=== PATIENT | female | born 1950 | race Caucasian/White ===

== ENCOUNTER 2022-10-29 11:35 | Inpatient (IN) | payer OTHER ==
[~2022-10-29] VITALS: Ht 160 cm; Wt 50.3 kg
[2022-10-29] MEDS ORDERED: IV NS 0.9% 1,000 ML IV ONE (12:00)
[2022-10-29 12:19] LABS: MAGNESIUM 1.7 mg/dL (1.8-2.4)
[2022-10-29 12:24] LABS: BASOPHILS % (AUTO) 0.4 % (0.0-2.0); EOSINOPHILS % (AUTO) 2.2 % (0.0-6.0); HEMATOCRIT 23 % (33-45); HEMOGLOBIN 7.4 g/dL (11.5-14.8); LYMPHOCYTES # (AUTO) 0.9 K/uL (0.8-4.8); LYMPHOCYTES % (AUTO) 15.5 % (20.0-44.0); MEAN CORPUSCULAR HGB CONC 32 g/dl (31.0-36.0); MEAN CORPUSCULAR VOLUME 92 fL (82-100); MONOCYTES # (AUTO) 0.5 K/uL (0.1-1.30); MONOCYTES % (AUTO) 9.9 % (2.0-12.0); RED BLOOD CELL COUNT(AUTO) 2.53 MIL/uL (4.0-5.2); WHITE BLOOD COUNT (AUTO) 5.5 K/uL (4.3-11.0)
[2022-10-29 12:31] LABS: PLATELET COUNT (AUTO) 38 K/uL (150-450)
[2022-10-29 12:41] LABS: ALANINE AMINOTRANSFERASE 30 U/L (12-78); ALBUMIN 1.5 g/dL (3.4-5.0); ALKALINE PHOSPHATASE 116 U/L (46-116); ASPARTATE AMINOTRANSFERASE 20 U/L (15-37); BILIRUBIN,DIRECT 0.4 mg/dL (0.0-0.2); BILIRUBIN,TOTAL 0.7 mg/dL (0.2-1.0); CARBON DIOXIDE 22 mmol/L (21-32); CHLORIDE 115 mmol/L (98-107); CREATININE 7.4 mg/dL (0.6-1.3); GLUCOSE 98 mg/dL (74-106); POTASSIUM 4.2 mmol/L (3.5-5.1); SODIUM SERUM 148 mmol/L (136-145); TOTAL PROTEIN, SERUM 4.7 g/dL (6.4-8.2); UREA NITROGEN, BLOOD 48 mg/dL (7-18)
[2022-10-29 13:31] LABS: BASOPHILS % (MANUAL) 0 % (0.0-2.0); EOSINOPHILS % (MANUAL) 3 % (0-4); LYMPHOCYTES % (MANUAL) 16 % (16-48); MONOCYTES % (MANUAL) 7 % (0-11.0); NEUTROPHILS % (MANUAL) 74 (42-76)
[2022-10-29] MEDS ORDERED: ONDANSETRON HCL/PF 4 MG/2 ML VIAL IVP PRN (14:00)
[2022-10-29] MEDS ORDERED: PHYTONADIONE INJ 10 MG in IV D5W 50 ML SQ SCH (14:00)
[2022-10-29] MEDS ORDERED: CALC667T8 PO (14:07)
[2022-10-29] MEDS ORDERED: TRIA15OI2 TP (14:07)
[2022-10-29] MEDS ORDERED: MAGN400O6 PO (14:07)
[2022-10-29] MEDS ORDERED: TYL2T PO (14:07)
[2022-10-29] MEDS ORDERED: FOLI0.8T23 PO (14:07)
[2022-10-29] MEDS ORDERED: AMIN30LI2 PO (14:07)
[2022-10-29] MEDS ORDERED: ASCO500T10 PO (14:07)
[2022-10-29] MEDS ORDERED: PANT40TA49 PO (14:07)
[2022-10-29] MEDS ORDERED: SEVE800T8 PO (14:07)
[2022-10-29] MEDS ORDERED: NEOM1OIN15 TP (14:07)
[2022-10-29] MEDS ORDERED: XEROFORM TP (14:07)
[2022-10-29] MEDS ORDERED: ERGO500093 PO (14:07)
[2022-10-29] MEDS ORDERED: FURO-144 PO (14:07)
[2022-10-29] MEDS ORDERED: COLL30OI TP (14:07)
[2022-10-29] MEDS ORDERED: DOCU100C36 PO (14:07)
[2022-10-29] MEDS ORDERED: LACT20SO4 PO (14:07)
[2022-10-29] MEDS ORDERED: ZINC220C6 PO (14:07)
[2022-10-29] MEDS ORDERED: CRAN3875 PO (14:07)
[2022-10-29] MEDS ORDERED: EPOE40002 SQ (14:07)
[2022-10-29] MEDS ORDERED: SPIR50TA PO (14:07)
[2022-10-29] MEDS ORDERED: CRAN425C6 PO (14:07)
[2022-10-29] MEDS ORDERED: POVI3780 TP (14:07)
[2022-10-29] MEDS ORDERED: ONDA4TAB5 PO (14:08)
[2022-10-29] MEDS ORDERED: BACI/NEOM/POLY B OINT PKT 1 UDPKT PACKET TP SCH ×2 (14:30→17:30)
[2022-10-29] MEDS ORDERED: ACETAMINOPHEN 325 MG TABLET PO PRN (14:30)
[2022-10-29] MEDS ORDERED: DEXTROSE 50%-WATER 50 ML DISP.SYRIN IV PRN (14:30)
[2022-10-29] MEDS ORDERED: COLLAGENASE 30 GM TUBE TP SCH (14:30)
[2022-10-29 14:36] LABS: BILIRUBIN,URINE 1+ (NEGATIVE); COLOR,URINE YELLOW (YELLOW); LEUKOCYTE ESTERASE ,URINE 3+ (NEGATIVE); NITRITE, URINE NEGATIVE (NEGATIVE); PH,URINE 5.5 (5.0-8.0); PROTEIN,URINE 2+ mg/dl (NEGATIVE); UGLUCOSE NEGATIVE (NEGATIVE); UROBILINOGEN,URINE 0.2 EU/dL (0.2)
[2022-10-29 16:00] VITALS: BP 115/63; TEMP 97; O2SAT 95
[2022-10-29 16:08] LABS: BACTERIA,URINE 1+ /HPF (None Seen); MUCUS,URINE Moderate /LPF (None Seen); WBC,URINE TOO NUMEROUS TO COUN /HPF (0-3)
[2022-10-29] MEDS: PANTOPRAZOLE 40 MG VIAL IV SCH (16:11)
[2022-10-29] MEDS: PHYTONADIONE INJ 10 MG/1 ML AMPUL SQ SCH (16:12)
[2022-10-29] MEDS: LACTULOSE UDC 200 G in SODIUM CHLORIDE IRRIG SOLUTION 400 ML IR SCH ×2 (17:00→22:44)
[2022-10-29] MEDS: EPOETIN ALFA-EPBX 2,000 UNIT/ML VIAL SQ SCH (17:52)
[2022-10-29] MEDS ORDERED: EPOETIN ALFA-EPBX 4,000 UNIT/ML VIAL SQ SCH (18:00)
[2022-10-29] MEDS: BLOOD SUGAR DIAGNOSTIC 1 EACH STRIP IN SCH (18:16)
[2022-10-29] MEDS: ALBUMIN 25% 25 GM in PREMIX 1 EA IV PRN ×2 (18:27→18:54)
[2022-10-29 19:29] LABS: BASOPHILS % (AUTO) 0.6 % (0.0-2.0); EOSINOPHILS % (AUTO) 2.6 % (0.0-6.0); HEMATOCRIT 24 % (33-45); HEMOGLOBIN 7.7 g/dL (11.5-14.8); LYMPHOCYTES % (AUTO) 17.9 % (20.0-44.0); MEAN CORPUSCULAR HGB CONC 32 g/dl (31.0-36.0); MEAN CORPUSCULAR VOLUME 90 fL (82-100); MONOCYTES # (AUTO) 0.2 K/uL (0.1-1.30); MONOCYTES % (AUTO) 3.6 % (2.0-12.0); NEUTROPHILS # (AUTO) 4.2 K/uL (1.8-8.9); NEUTROPHILS % (AUTO) 75.3 % (43.0-81.0); RED BLOOD CELL COUNT(AUTO) 2.62 MIL/uL (4.0-5.2); WHITE BLOOD COUNT (AUTO) 5.6 K/uL (4.3-11.0)
[2022-10-29 19:58] LABS: PLATELET COUNT (AUTO) 44 K/uL (150-450)
[2022-10-29 20:00] VITALS: BP 95/56; TEMP 97.6; O2SAT 100
[2022-10-29] MEDS ORDERED: CEFTRIAXONE 1 G in IV D5W 50 ML IV SCH (20:00)
[2022-10-29 20:57] LABS: EOSINOPHILS % (MANUAL) 1 % (0-4); LYMPHOCYTES % (MANUAL) 12 % (16-48); MONOCYTES % (MANUAL) 5 % (0-11.0); NEUTROPHILS % (MANUAL) 82 (42-76)
[2022-10-30 00:49] VITALS: BP 97/51; TEMP 97.6; O2SAT 94
[2022-10-30] MEDS: BLOOD SUGAR DIAGNOSTIC 1 EACH STRIP IN SCH ×4 (01:32→18:01)
[2022-10-30] MEDS: LACTULOSE UDC 200 G in SODIUM CHLORIDE IRRIG SOLUTION 400 ML IR SCH ×6 (01:46→21:04)
[2022-10-30] MEDS: IV D5/0.45 NACL 1,000 ML IV PRN ×2 (02:48→23:48)
[2022-10-30 04:00] VITALS: BP 108/56; TEMP 97.6; O2SAT 100
[2022-10-30] MEDS ORDERED: Z GUARD REMEDY 4 OZ OINT TP PRN (08:00)
[2022-10-30 08:58] VITALS: BP 116/60; TEMP 97.4; O2SAT 98
[2022-10-30] MEDS: BACI/NEOM/POLY B OINT PKT 1 UDPKT PACKET TP SCH ×2 (09:00)
[2022-10-30] MEDS: Z GUARD REMEDY 4 OZ OINT TP SCH (09:00)
[2022-10-30] MEDS: PANTOPRAZOLE 40 MG VIAL IV SCH (09:59)
[2022-10-30] MEDS: ASCORBIC ACID 500 MG TABLET PO SCH ×2 (10:00→10:32)
[2022-10-30] MEDS: PHYTONADIONE INJ 10 MG/1 ML AMPUL SQ SCH (10:00)
[2022-10-30] MEDS: MEROPENEM 500 MG in IV NS 0.9% 50 ML IV SCH (10:40)
[2022-10-30 12:15] VITALS: BP 111/53; TEMP 97.3; O2SAT 100
[2022-10-30 12:19] LABS: BASOPHILS % (AUTO) 0.4 % (0.0-2.0); EOSINOPHILS % (AUTO) 4.3 % (0.0-6.0); HEMATOCRIT 27 % (33-45); HEMOGLOBIN 8.6 g/dL (11.5-14.8); LYMPHOCYTES # (AUTO) 0.7 K/uL (0.8-4.8); LYMPHOCYTES % (AUTO) 9.6 % (20.0-44.0); MEAN CORPUSCULAR HGB CONC 32 g/dl (31.0-36.0); MEAN CORPUSCULAR VOLUME 92 fL (82-100); MONOCYTES # (AUTO) 0.4 K/uL (0.1-1.30); NEUTROPHILS # (AUTO) 5.8 K/uL (1.8-8.9); NEUTROPHILS % (AUTO) 80.7 % (43.0-81.0); RED BLOOD CELL COUNT(AUTO) 2.89 MIL/uL (4.0-5.2); WHITE BLOOD COUNT (AUTO) 7.2 K/uL (4.3-11.0)
[2022-10-30 12:25] LABS: PLATELET COUNT (AUTO) 39 K/uL (150-450)
[2022-10-30 12:30] LABS: SERUM AMMONIA 21 umol/L (11-32)
[2022-10-30 12:34] LABS: ALANINE AMINOTRANSFERASE 27 U/L (12-78); ALBUMIN 2.7 g/dL (3.4-5.0); ALKALINE PHOSPHATASE 112 U/L (46-116); ASPARTATE AMINOTRANSFERASE 24 U/L (15-37); BILIRUBIN,TOTAL 1.1 mg/dL (0.2-1.0); CARBON DIOXIDE 21 mmol/L (21-32); CHLORIDE 110 mmol/L (98-107); GLUCOSE 112 mg/dL (74-106); POTASSIUM 3.5 mmol/L (3.5-5.1); SODIUM SERUM 145 mmol/L (136-145); TOTAL PROTEIN, SERUM 5.7 g/dL (6.4-8.2); UREA NITROGEN, BLOOD 37 mg/dL (7-18)
[2022-10-30] MEDS: INSULIN REGULAR, HUMAN 100 UNIT/ML 3 ML VIAL SQ PRN ×2 (12:58→18:21)
[2022-10-30 15:00] LABS: EOSINOPHILS % (MANUAL) 4 % (0-4); LYMPHOCYTES % (MANUAL) 5 % (16-48); MONOCYTES % (MANUAL) 2 % (0-11.0); NEUTROPHILS % (MANUAL) 89 (42-76)
[2022-10-30] MEDS: LINEZOLID RTU BAG 600 MG in PREMIX 1 EA IV SCH ×2 (16:15→20:39)
[2022-10-30 16:31] VITALS: BP 132/66; TEMP 99.3; O2SAT 97
[2022-10-30] MEDS: LACTOBACILLUS RHAMNOSUS GG 1 EACH CAP.SPRINK PO SCH (17:00)
[2022-10-30 20:00] VITALS: BP 101/47; TEMP 97.8; O2SAT 99
[2022-10-31] VITALS: BP 99/60; TEMP 97.8; O2SAT 99
[2022-10-31] MEDS: BLOOD SUGAR DIAGNOSTIC 1 EACH STRIP IN SCH ×5 (00:38→23:55)
[2022-10-31] MEDS: INSULIN REGULAR, HUMAN 100 UNIT/ML 3 ML VIAL SQ PRN ×3 (00:44→17:40)
[2022-10-31] MEDS: LACTULOSE UDC 200 G in SODIUM CHLORIDE IRRIG SOLUTION 400 ML IR SCH ×5 (01:27→17:00)
[2022-10-31 04:00] VITALS: BP 111/69; TEMP 97.6; O2SAT 100
[2022-10-31 04:59] VITALS: BP 111/69; TEMP 97.6; O2SAT 100
[2022-10-31 06:26] LABS: BASOPHILS % (AUTO) 0.5 % (0.0-2.0); EOSINOPHILS % (AUTO) 10.2 % (0.0-6.0); HEMATOCRIT 26 % (33-45); HEMOGLOBIN 8.1 g/dL (11.5-14.8); LYMPHOCYTES # (AUTO) 0.9 K/uL (0.8-4.8); LYMPHOCYTES % (AUTO) 15.1 % (20.0-44.0); MEAN CORPUSCULAR HGB CONC 32 g/dl (31.0-36.0); MEAN CORPUSCULAR VOLUME 92 fL (82-100); MONOCYTES # (AUTO) 0.6 K/uL (0.1-1.30); NEUTROPHILS % (AUTO) 64.2 % (43.0-81.0); RED BLOOD CELL COUNT(AUTO) 2.76 MIL/uL (4.0-5.2); WHITE BLOOD COUNT (AUTO) 6.2 K/uL (4.3-11.0)
[2022-10-31 07:30] LABS: ALANINE AMINOTRANSFERASE 25 U/L (12-78); ALBUMIN 2.2 g/dL (3.4-5.0); ALKALINE PHOSPHATASE 102 U/L (46-116); ASPARTATE AMINOTRANSFERASE 26 U/L (15-37); BILIRUBIN,TOTAL 0.8 mg/dL (0.2-1.0); CALCIUM, SERUM 8.8 mg/dL (8.5-10.1); CARBON DIOXIDE 20 mmol/L (21-32); CHLORIDE 110 mmol/L (98-107); CREATININE 6.1 mg/dL (0.6-1.3); GLUCOSE 132 mg/dL (74-106); POTASSIUM 3.3 mmol/L (3.5-5.1); SODIUM SERUM 143 mmol/L (136-145); TOTAL PROTEIN, SERUM 5.2 g/dL (6.4-8.2); UREA NITROGEN, BLOOD 37 mg/dL (7-18)
[2022-10-31 07:36] LABS: PLATELET COUNT (AUTO) 33 K/uL (150-450)
[2022-10-31 08:48] VITALS: BP_SYST 11; BP_SYST 111; BP_DIAS 63; TEMP 97.5; O2SAT 100
[2022-10-31] MEDS: Z GUARD REMEDY 4 OZ OINT TP SCH (09:00)
[2022-10-31] MEDS: LINEZOLID RTU BAG 600 MG in PREMIX 1 EA IV SCH ×2 (09:00→20:43)
[2022-10-31] MEDS: LACTOBACILLUS RHAMNOSUS GG 1 EACH CAP.SPRINK PO SCH ×2 (09:00→17:27)
[2022-10-31] MEDS: PANTOPRAZOLE 40 MG VIAL IV SCH (09:00)
[2022-10-31] MEDS: BACI/NEOM/POLY B OINT PKT 1 UDPKT PACKET TP SCH ×2 (09:00)
[2022-10-31] MEDS: MEROPENEM 500 MG in IV NS 0.9% 50 ML IV SCH (10:00)
[2022-10-31] MEDS ORDERED: NEPRO VAN 237 ML CAN PO PRN (11:00)
[2022-10-31] MEDS: LACTULOSE 10 G/15 ML UDC (PYXIS) PO PRN ×2 (12:26→13:04)
[2022-10-31] MEDS: ACETAMINOPHEN 325 MG TABLET PO PRN ×3 (12:26→22:01)
[2022-10-31] MEDS: PHYTONADIONE INJ 10 MG/1 ML AMPUL SQ SCH (13:05)
[2022-10-31] MEDS: PROSOURCE / PROSTAT (PYXIS) 30 ML UDC PO SCH ×2 (13:07→17:21)
[2022-10-31 13:35] LABS: BASOPHILS % (MANUAL) 0 % (0.0-2.0); EOSINOPHILS % (MANUAL) 5 % (0-4); LYMPHOCYTES % (MANUAL) 16 % (16-48); MONOCYTES % (MANUAL) 8 % (0-11.0); NEUTROPHILS % (MANUAL) 71 (42-76)
[2022-10-31] MEDS ORDERED: POTASSIUM CHLORIDE 20 MEQ TAB.PRT.SR PO ONE (14:00)
[2022-10-31] MEDS: ALBUMIN 25% 25 GM in PREMIX 1 EA IV PRN ×2 (14:50→15:54)
[2022-10-31] MEDS ORDERED: diphenhydrAMINE HCL 50 MG/ML VIAL IV ONE (15:00)
[2022-10-31] MEDS ORDERED: ACETAMINOPHEN 325 MG TABLET PO ONE (15:00)
[2022-10-31] MEDS ORDERED: ALBUMIN 25% 25 GM in PREMIX 1 EA IV ONE (15:30)
[2022-10-31] MEDS ORDERED: ALBUMIN 25% 12.5 GM/50 ML BOTTLE IV STA (16:19)
[2022-10-31] MEDS ORDERED: IV NS 0.9% 500 ML BAG IV STA (16:19)
[2022-10-31] MEDS ORDERED: ALBUMIN 25% 12.5 GM in PREMIX 1 EA IV ONE (17:00)
[2022-10-31] MEDS: EPOETIN ALFA-EPBX 2,000 UNIT/ML VIAL SQ SCH (18:27)
[2022-10-31] MEDS ORDERED: EPOETIN ALFA (10,000 UNIT) 10,000 UNIT/ML VIAL IV ONE (19:00)
[2022-10-31 20:00] VITALS: BP 110/61; TEMP 97.9; O2SAT 100
[2022-10-31] MEDS: LACTULOSE 10 G/15 ML UDC (PYXIS) PO SCH ×2 (20:44→21:00)
[2022-11-01] MEDS: INSULIN REGULAR, HUMAN 100 UNIT/ML 3 ML VIAL SQ PRN ×4 (00:02→23:38)
[2022-11-01] MEDS: LACTULOSE 10 G/15 ML UDC (PYXIS) PO SCH ×6 (01:00→20:47)
[2022-11-01] MEDS: BLOOD SUGAR DIAGNOSTIC 1 EACH STRIP IN SCH ×4 (05:43→23:36)
[2022-11-01 07:00] VITALS: BP 97/61; TEMP 98.1; O2SAT 99
[2022-11-01 07:38] LABS: BASOPHILS % (AUTO) 0.9 % (0.0-2.0); EOSINOPHILS % (AUTO) 10.7 % (0.0-6.0); HEMATOCRIT 23 % (33-45); HEMOGLOBIN 7.4 g/dL (11.5-14.8); LYMPHOCYTES # (AUTO) 0.5 K/uL (0.8-4.8); LYMPHOCYTES % (AUTO) 13.9 % (20.0-44.0); MEAN CORPUSCULAR HGB CONC 32 g/dl (31.0-36.0); MEAN CORPUSCULAR VOLUME 92 fL (82-100); MONOCYTES # (AUTO) 0.4 K/uL (0.1-1.30); MONOCYTES % (AUTO) 9.4 % (2.0-12.0); NEUTROPHILS # (AUTO) 2.6 K/uL (1.8-8.9); NEUTROPHILS % (AUTO) 65.1 % (43.0-81.0); RED BLOOD CELL COUNT(AUTO) 2.53 MIL/uL (4.0-5.2); WHITE BLOOD COUNT (AUTO) 3.9 K/uL (4.3-11.0)
[2022-11-01 07:54] LABS: FERRITIN 120 ng/mL (8-388); THYROID STIMULATING HORMONE 0.555 uIU/mL (0.358-3.74)
[2022-11-01 07:55] LABS: ALANINE AMINOTRANSFERASE 24 U/L (12-78); ALBUMIN 2.9 g/dL (3.4-5.0); ALKALINE PHOSPHATASE 83 U/L (46-116); ASPARTATE AMINOTRANSFERASE 19 U/L (15-37); BILIRUBIN,TOTAL 0.9 mg/dL (0.2-1.0); CALCIUM, SERUM 8.7 mg/dL (8.5-10.1); CARBON DIOXIDE 22 mmol/L (21-32); CHLORIDE 109 mmol/L (98-107); CREATININE 4.7 mg/dL (0.6-1.3); GLUCOSE 104 mg/dL (74-106); POTASSIUM 3.6 mmol/L (3.5-5.1); SODIUM SERUM 143 mmol/L (136-145); TOTAL PROTEIN, SERUM 5.1 g/dL (6.4-8.2); UREA NITROGEN, BLOOD 27 mg/dL (7-18)
[2022-11-01 08:05] LABS: IRON, SERUM 40 ug/dl (50-175); TOTAL IRON BINDING CAPACITY 98 ug/dl (250-450)
[2022-11-01 08:09] LABS: PLATELET COUNT (AUTO) 20 K/uL (150-450)
[2022-11-01 08:29] LABS: D-DIMER 8.25 mg/L(FEU (0.17-0.50)
[2022-11-01 08:54] LABS: C-REACTIVE PROTEIN 3.4 mg/dL (0.0-0.9)
[2022-11-01 09:00] LABS: EOSINOPHILS % (MANUAL) 8 % (0-4); LYMPHOCYTES % (MANUAL) 9 % (16-48); MONOCYTES % (MANUAL) 7 % (0-11.0); NEUTROPHILS % (MANUAL) 76 (42-76)
[2022-11-01] MEDS: LACTOBACILLUS RHAMNOSUS GG 1 EACH CAP.SPRINK PO SCH ×2 (09:21→17:06)
[2022-11-01] MEDS: FOLIC ACID 1 MG TABLET PO SCH (09:21)
[2022-11-01] MEDS: PROSOURCE / PROSTAT (PYXIS) 30 ML UDC PO SCH ×3 (09:21→17:07)
[2022-11-01] MEDS: LINEZOLID RTU BAG 600 MG in PREMIX 1 EA IV SCH ×2 (09:21→20:55)
[2022-11-01] MEDS: Z GUARD REMEDY 4 OZ OINT TP SCH (09:22)
[2022-11-01] MEDS: PANTOPRAZOLE 40 MG VIAL IV SCH (09:22)
[2022-11-01] MEDS: ASCORBIC ACID 500 MG TABLET PO SCH (09:22)
[2022-11-01] MEDS: ERGOCALCIFEROL (VITAMIN D 2) 50,000 UNIT CAPSULE PO SCH (09:40)
[2022-11-01] MEDS: NEOMY SULF/BACITRAC ZN/POLY 15 GM TUBE TP SCH ×2 (09:40→09:41)
[2022-11-01] MEDS: MEROPENEM 500 MG in IV NS 0.9% 50 ML IV SCH (10:56)
[2022-11-01] MEDS: TRAMADOL HCL 50 MG TABLET PO PRN (18:39)
[2022-11-01 20:00] VITALS: BP 120/59; TEMP 97.8; O2SAT 100
[2022-11-01] MEDS: FLUCONAZOLE IN NS 100 MG in PREMIX 1 EA IV SCH ×2 (22:00)
[2022-11-01] MEDS ORDERED: VANCOMYCIN 1 GM /D5W 250 ML PB IV ONE (22:30)
[2022-11-01] MEDS ORDERED: VANCOMYCIN 1 GM in IV D5W 250ml IV ONE (23:00)
[2022-11-02] VITALS (10 sets, daily range): BP systolic 94–120; BP diastolic 52–67; TEMP 97.3–98.6; O2SAT 98–99
[2022-11-02] MEDS ORDERED: diphenhydrAMINE HCL 50 MG/ML VIAL ONE (00:33)
[2022-11-02] MEDS: LACTULOSE 10 G/15 ML UDC (PYXIS) PO SCH ×6 (01:10→20:33)
[2022-11-02] MEDS: INSULIN REGULAR, HUMAN 100 UNIT/ML 3 ML VIAL SQ PRN (05:57)
[2022-11-02] MEDS: BLOOD SUGAR DIAGNOSTIC 1 EACH STRIP IN SCH ×3 (05:57→17:01)
[2022-11-02] MEDS ORDERED: VANCOMYCIN 500 MG in IV D5W 100 ML IV PRN (06:30)
[2022-11-02 06:47] LABS: BASOPHILS % (AUTO) 0.8 % (0.0-2.0); EOSINOPHILS % (AUTO) 11.4 % (0.0-6.0); HEMATOCRIT 24 % (33-45); HEMOGLOBIN 7.7 g/dL (11.5-14.8); LYMPHOCYTES # (AUTO) 0.7 K/uL (0.8-4.8); LYMPHOCYTES % (AUTO) 13.8 % (20.0-44.0); MEAN CORPUSCULAR HGB CONC 32 g/dl (31.0-36.0); MEAN CORPUSCULAR VOLUME 93 fL (82-100); MONOCYTES # (AUTO) 0.5 K/uL (0.1-1.30); RED BLOOD CELL COUNT(AUTO) 2.63 MIL/uL (4.0-5.2); WHITE BLOOD COUNT (AUTO) 4.7 K/uL (4.3-11.0)
[2022-11-02 07:12] LABS: D-DIMER 5.4 mg/L(FEU (0.17-0.50)
[2022-11-02 07:22] LABS: ALANINE AMINOTRANSFERASE 23 U/L (12-78); ALBUMIN 2.7 g/dL (3.4-5.0); ALKALINE PHOSPHATASE 86 U/L (46-116); ASPARTATE AMINOTRANSFERASE 18 U/L (15-37); BILIRUBIN,TOTAL 0.8 mg/dL (0.2-1.0); CALCIUM, SERUM 9.1 mg/dL (8.5-10.1); CARBON DIOXIDE 19 mmol/L (21-32); CHLORIDE 109 mmol/L (98-107); CREATININE 5.2 mg/dL (0.6-1.3); GLUCOSE 105 mg/dL (74-106); POTASSIUM 3.3 mmol/L (3.5-5.1); SODIUM SERUM 142 mmol/L (136-145); TOTAL PROTEIN, SERUM 5.3 g/dL (6.4-8.2); UREA NITROGEN, BLOOD 29 mg/dL (7-18)
[2022-11-02 07:32] LABS: PLATELET COUNT (AUTO) 25 K/uL (150-450)
[2022-11-02] MEDS ORDERED: POTASSIUM CHLORIDE 20 MEQ TAB.PRT.SR PO ONE (08:30)
[2022-11-02 08:54] LABS: EOSINOPHILS % (MANUAL) 10 % (0-4); LYMPHOCYTES % (MANUAL) 15 % (16-48); MONOCYTES % (MANUAL) 9 % (0-11.0); NEUTROPHILS % (MANUAL) 66 (42-76)
[2022-11-02] MEDS: ALBUMIN 25% 25 GM in PREMIX 1 EA IV PRN (09:02)
[2022-11-02] MEDS: FERROUS SULFATE (325 MG) 325 MG/TAB TABLET PO SCH ×2 (09:46→16:25)
[2022-11-02] MEDS: ASCORBIC ACID 500 MG TABLET PO SCH (09:46)
[2022-11-02] MEDS: LACTOBACILLUS RHAMNOSUS GG 1 EACH CAP.SPRINK PO SCH ×2 (09:46→16:25)
[2022-11-02] MEDS: PROSOURCE / PROSTAT (PYXIS) 30 ML UDC PO SCH ×3 (09:47→16:22)
[2022-11-02] MEDS: PANTOPRAZOLE 40 MG/PACK PACK PO SCH (09:47)
[2022-11-02] MEDS: FOLIC ACID 1 MG TABLET PO SCH (09:47)
[2022-11-02] MEDS: NEOMY SULF/BACITRAC ZN/POLY 15 GM TUBE TP SCH ×2 (09:49)
[2022-11-02] MEDS: Z GUARD REMEDY 4 OZ OINT TP SCH (09:49)
[2022-11-02] MEDS: MEROPENEM 500 MG in IV NS 0.9% 50 ML IV SCH (10:59)
[2022-11-02] MEDS: LINEZOLID 600 MG TABLET PO SCH (16:25)
[2022-11-02] MEDS ORDERED: SODIUM CHLORIDE IV ONE (23:06)
[2022-11-02] MEDS ORDERED: FLUCONAZOLE IV ONE (23:06)
[2022-11-02] MEDS: FLUCONAZOLE IN NS 100 MG in PREMIX 1 EA IV SCH ×2 (23:11)
[2022-11-03] MEDS: INSULIN REGULAR, HUMAN 100 UNIT/ML 3 ML VIAL SQ PRN ×3 (00:19→11:51)
[2022-11-03] MEDS: BLOOD SUGAR DIAGNOSTIC 1 EACH STRIP IN SCH ×4 (00:19→17:58)
[2022-11-03] MEDS: LACTULOSE 10 G/15 ML UDC (PYXIS) PO SCH ×6 (00:49→22:08)
[2022-11-03 06:13] LABS: BASOPHILS # (AUTO) 0.1 K/uL (0.0-0.2); BASOPHILS % (AUTO) 1.2 % (0.0-2.0); EOSINOPHILS % (AUTO) 11.4 % (0.0-6.0); HEMATOCRIT 26 % (33-45); HEMOGLOBIN 8.4 g/dL (11.5-14.8); LYMPHOCYTES # (AUTO) 0.7 K/uL (0.8-4.8); LYMPHOCYTES % (AUTO) 13.3 % (20.0-44.0); MEAN CORPUSCULAR HGB CONC 32 g/dl (31.0-36.0); MEAN CORPUSCULAR VOLUME 91 fL (82-100); MONOCYTES # (AUTO) 0.5 K/uL (0.1-1.30); MONOCYTES % (AUTO) 10.6 % (2.0-12.0); NEUTROPHILS # (AUTO) 3.2 K/uL (1.8-8.9); NEUTROPHILS % (AUTO) 63.5 % (43.0-81.0); RED BLOOD CELL COUNT(AUTO) 2.89 MIL/uL (4.0-5.2)
[2022-11-03 06:20] LABS: PLATELET COUNT (AUTO) 26 K/uL (150-450)
[2022-11-03 06:26] LABS: CALCIUM, SERUM 9.1 mg/dL (8.5-10.1); CARBON DIOXIDE 22 mmol/L (21-32); CHLORIDE 110 mmol/L (98-107); CREATININE 4.8 mg/dL (0.6-1.3); GLUCOSE 129 mg/dL (74-106); MAGNESIUM 1.7 mg/dL (1.8-2.4); POTASSIUM 3.9 mmol/L (3.5-5.1); SODIUM SERUM 144 mmol/L (136-145); UREA NITROGEN, BLOOD 26 mg/dL (7-18)
[2022-11-03 06:29] LABS: D-DIMER 8.88 mg/L(FEU (0.17-0.50)
[2022-11-03 07:30] VITALS: BP 142/56; O2SAT 99
[2022-11-03 08:12] LABS: IMMUNOGLOBULIN A, SERUM 298 mg/dL (64-422); IMMUNOGLOBULIN G, SERUM 1047 mg/dL (586-1602)
[2022-11-03] MEDS: NEOMY SULF/BACITRAC ZN/POLY 15 GM TUBE TP SCH ×2 (09:08)
[2022-11-03] MEDS: MEROPENEM 500 MG in IV NS 0.9% 50 ML IV SCH (09:08)
[2022-11-03] MEDS: PROSOURCE / PROSTAT (PYXIS) 30 ML UDC PO SCH ×3 (09:09→17:00)
[2022-11-03] MEDS: LINEZOLID 600 MG TABLET PO SCH ×2 (09:09→17:16)
[2022-11-03] MEDS: ASCORBIC ACID 500 MG TABLET PO SCH (09:09)
[2022-11-03] MEDS: FERROUS SULFATE (325 MG) 325 MG/TAB TABLET PO SCH ×2 (09:09→17:17)
[2022-11-03] MEDS: FOLIC ACID 1 MG TABLET PO SCH (09:09)
[2022-11-03] MEDS: LACTOBACILLUS RHAMNOSUS GG 1 EACH CAP.SPRINK PO SCH ×2 (09:09→17:16)
[2022-11-03] MEDS: PANTOPRAZOLE 40 MG/PACK PACK PO SCH (09:09)
[2022-11-03] MEDS: Z GUARD REMEDY 4 OZ OINT TP SCH (09:10)
[2022-11-03 09:15] LABS: EOSINOPHILS % (MANUAL) 8 % (0-4); LYMPHOCYTES % (MANUAL) 15 % (16-48); MONOCYTES % (MANUAL) 8 % (0-11.0); NEUTROPHILS % (MANUAL) 69 (42-76)
[2022-11-03 11:12] LABS: *ANA ANTI-CENTROMERE B AB <0.2 AI (0.0-0.9); *ANA ANTI-DNA(DS) AB, QN 3 IU/mL (0-9); *ANA ANTI-JO-1 <0.2 AI (0.0-0.9); *ANA ANTICHROMATIN ANTIBODY <0.2 AI (0.0-0.9); *ANA RNP ANTIBODIES <0.2 AI (0.0-0.9); *ANA SJOGREN'S ANTI-SS-A <0.2 AI (0.0-0.9); *ANA SJOGREN'S ANTI-SS-B <0.2 AI (0.0-0.9); *ANAANTI-SCLERODERMA-70 AB <0.2 AI (0.0-0.9); *ANASMITH AB <0.2 AI (0.0-0.9)
[2022-11-03] MEDS ORDERED: Magnesium 1GM/D5W 100ML PREMIX PIGGYBACK IV ONE (11:30)
[2022-11-03] MEDS: TRAMADOL HCL 50 MG TABLET PO PRN (13:54)
[2022-11-03] MEDS ORDERED: diphenhydrAMINE HCL 50 MG/ML VIAL IV ONE ×2 (14:00→23:30)
[2022-11-03] MEDS ORDERED: ACETAMINOPHEN 325 MG TABLET PO PRN (14:00)
[2022-11-03] MEDS: EPOETIN ALFA-EPBX 2,000 UNIT/ML VIAL SQ SCH (15:13)
[2022-11-03 16:00] VITALS: BP 111/70; O2SAT 97
[2022-11-03 20:00] VITALS: BP 90/50; TEMP 97.7; O2SAT 97
[2022-11-03] MEDS: FLUCONAZOLE (100 MG) 100 MG TABLET PO SCH (22:08)
[2022-11-03 23:33] VITALS: BP 93/51; TEMP 97.4
[2022-11-03 23:53] VITALS: BP 100/59; TEMP 97.4
[2022-11-04] VITALS (8 sets, daily range): BP systolic 82–115; BP diastolic 39–64; TEMP 97.3–97.9; O2SAT 95–96
[2022-11-04] MEDS: BLOOD SUGAR DIAGNOSTIC 1 EACH STRIP IN SCH ×4 (00:11→18:06)
[2022-11-04] MEDS: LACTULOSE 10 G/15 ML UDC (PYXIS) PO SCH ×6 (01:32→20:15)
[2022-11-04 06:34] LABS: BASOPHILS % (AUTO) 0.7 % (0.0-2.0); EOSINOPHILS % (AUTO) 8.1 % (0.0-6.0); HEMATOCRIT 24 % (33-45); HEMOGLOBIN 7.4 g/dL (11.5-14.8); LYMPHOCYTES # (AUTO) 0.7 K/uL (0.8-4.8); LYMPHOCYTES % (AUTO) 15.9 % (20.0-44.0); MEAN CORPUSCULAR HGB CONC 31 g/dl (31.0-36.0); MEAN CORPUSCULAR VOLUME 92 fL (82-100); MONOCYTES # (AUTO) 0.6 K/uL (0.1-1.30); MONOCYTES % (AUTO) 12.2 % (2.0-12.0); NEUTROPHILS # (AUTO) 2.9 K/uL (1.8-8.9); NEUTROPHILS % (AUTO) 63.1 % (43.0-81.0); RED BLOOD CELL COUNT(AUTO) 2.59 MIL/uL (4.0-5.2); WHITE BLOOD COUNT (AUTO) 4.5 K/uL (4.3-11.0)
[2022-11-04 06:37] LABS: PLATELET COUNT (AUTO) 28 K/uL (150-450)
[2022-11-04] MEDS: INSULIN REGULAR, HUMAN 100 UNIT/ML 3 ML VIAL SQ PRN (06:46)
[2022-11-04 06:55] LABS: ALANINE AMINOTRANSFERASE 22 U/L (12-78); ALBUMIN 2.7 g/dL (3.4-5.0); ALKALINE PHOSPHATASE 96 U/L (46-116); ASPARTATE AMINOTRANSFERASE 16 U/L (15-37); BILIRUBIN,TOTAL 0.7 mg/dL (0.2-1.0); CALCIUM, SERUM 9.4 mg/dL (8.5-10.1); CARBON DIOXIDE 22 mmol/L (21-32); CHLORIDE 109 mmol/L (98-107); CREATININE 5.3 mg/dL (0.6-1.3); GLUCOSE 85 mg/dL (74-106); POTASSIUM 4.2 mmol/L (3.5-5.1); SODIUM SERUM 143 mmol/L (136-145); TOTAL PROTEIN, SERUM 5.4 g/dL (6.4-8.2); UREA NITROGEN, BLOOD 30 mg/dL (7-18)
[2022-11-04] MEDS: LACTOBACILLUS RHAMNOSUS GG 1 EACH CAP.SPRINK PO SCH ×2 (09:19→17:56)
[2022-11-04] MEDS: FOLIC ACID 1 MG TABLET PO SCH (09:19)
[2022-11-04] MEDS: LINEZOLID 600 MG TABLET PO SCH ×2 (09:19→17:56)
[2022-11-04] MEDS: PROSOURCE / PROSTAT (PYXIS) 30 ML UDC PO SCH ×3 (09:19→17:56)
[2022-11-04] MEDS: FERROUS SULFATE (325 MG) 325 MG/TAB TABLET PO SCH ×2 (09:19→17:56)
[2022-11-04] MEDS: ASCORBIC ACID 500 MG TABLET PO SCH (09:19)
[2022-11-04] MEDS: PANTOPRAZOLE 40 MG/PACK PACK PO SCH (09:19)
[2022-11-04] MEDS: MEROPENEM 500 MG in IV NS 0.9% 50 ML IV SCH (09:22)
[2022-11-04] MEDS: Z GUARD REMEDY 4 OZ OINT TP SCH (09:37)
[2022-11-04] MEDS: NEOMY SULF/BACITRAC ZN/POLY 15 GM TUBE TP SCH ×3 (09:37→10:18)
[2022-11-04 11:17] LABS: *SPE A/G RATIO 1.4 (0.7-1.7); *SPE ALPHA-1-GLOBULIN 0.2 g/dL (0.0-0.4); *SPE ALPHA-2-GLOBULIN 0.3 g/dL (0.4-1.0); *SPE BETA GLOBULIN 0.5 g/dL (0.7-1.3); *SPE M-SPIKE Not Observed g/dL (Not Observed)
[2022-11-04 13:26] LABS: D-DIMER 7.74 mg/L(FEU (0.17-0.50)
[2022-11-04 13:33] LABS: BASOPHILS % (MANUAL) 0 % (0.0-2.0); EOSINOPHILS % (MANUAL) 7 % (0-4); LYMPHOCYTES % (MANUAL) 16 % (16-48); MONOCYTES % (MANUAL) 9 % (0-11.0); NEUTROPHILS % (MANUAL) 68 (42-76)
[2022-11-04] MEDS: ALBUMIN 25% 25 GM in PREMIX 1 EA IV PRN (15:14)
[2022-11-04 15:17] LABS: IMMUNOGLOBULIN M, SERUM 84 mg/dL (26-217)
[2022-11-04] MEDS ORDERED: ALBUMIN 25% 12.5 GM/50 ML BOTTLE IV ONE (17:30)
[2022-11-04] MEDS ORDERED: IV NS 0.9% 250 ML IV ONE (17:30)
[2022-11-04] MEDS ORDERED: ALBUMIN 25% 12.5 GM in PREMIX 1 EA IV ONE (18:00)
[2022-11-04] MEDS: FLUCONAZOLE (100 MG) 100 MG TABLET PO SCH (21:31)
[2022-11-05] VITALS (7 sets, daily range): BP systolic 103–123; BP diastolic 46–66; TEMP 97.5–97.6; O2SAT 96–100
[2022-11-05] MEDS: BLOOD SUGAR DIAGNOSTIC 1 EACH STRIP IN SCH ×5 (00:11→23:30)
[2022-11-05] MEDS: LACTULOSE 10 G/15 ML UDC (PYXIS) PO SCH ×6 (00:11→20:43)
[2022-11-05 06:39] LABS: BASOPHILS # (AUTO) 0.1 K/uL (0.0-0.2); BASOPHILS % (AUTO) 1.1 % (0.0-2.0); EOSINOPHILS % (AUTO) 7.4 % (0.0-6.0); HEMATOCRIT 24 % (33-45); HEMOGLOBIN 7.4 g/dL (11.5-14.8); LYMPHOCYTES # (AUTO) 0.7 K/uL (0.8-4.8); LYMPHOCYTES % (AUTO) 16.3 % (20.0-44.0); MEAN CORPUSCULAR HGB CONC 31 g/dl (31.0-36.0); MEAN CORPUSCULAR VOLUME 94 fL (82-100); MONOCYTES # (AUTO) 0.6 K/uL (0.1-1.30); MONOCYTES % (AUTO) 13.5 % (2.0-12.0); NEUTROPHILS # (AUTO) 2.7 K/uL (1.8-8.9); NEUTROPHILS % (AUTO) 61.7 % (43.0-81.0); RED BLOOD CELL COUNT(AUTO) 2.51 MIL/uL (4.0-5.2); WHITE BLOOD COUNT (AUTO) 4.4 K/uL (4.3-11.0)
[2022-11-05 06:57] LABS: PLATELET COUNT (AUTO) 29 K/uL (150-450)
[2022-11-05 07:22] LABS: ALANINE AMINOTRANSFERASE 20 U/L (12-78); ALKALINE PHOSPHATASE 91 U/L (46-116); ASPARTATE AMINOTRANSFERASE 25 U/L (15-37); BILIRUBIN,TOTAL 0.9 mg/dL (0.2-1.0); CALCIUM, SERUM 9.5 mg/dL (8.5-10.1); CARBON DIOXIDE 20 mmol/L (21-32); CHLORIDE 111 mmol/L (98-107); CREATININE 5.1 mg/dL (0.6-1.3); GLUCOSE 92 mg/dL (74-106); POTASSIUM 4.2 mmol/L (3.5-5.1); SODIUM SERUM 145 mmol/L (136-145); TOTAL PROTEIN, SERUM 5.6 g/dL (6.4-8.2); UREA NITROGEN, BLOOD 32 mg/dL (7-18)
[2022-11-05 08:20] LABS: D-DIMER 9.71 mg/L(FEU (0.17-0.50)
[2022-11-05] MEDS ORDERED: Magnesium 1 GM/2 ML VIAL IV ONE (09:00)
[2022-11-05] MEDS: Magnesium 1GM/D5W 100ML PREMIX 100 ML IV SCH ×2 (09:00→10:00)
[2022-11-05] MEDS: LINEZOLID 600 MG TABLET PO SCH ×2 (10:19→17:52)
[2022-11-05] MEDS: FERROUS SULFATE (325 MG) 325 MG/TAB TABLET PO SCH ×2 (10:20→17:51)
[2022-11-05] MEDS: ASCORBIC ACID 500 MG TABLET PO SCH (10:20)
[2022-11-05] MEDS: LACTOBACILLUS RHAMNOSUS GG 1 EACH CAP.SPRINK PO SCH ×2 (10:20→17:51)
[2022-11-05] MEDS: FOLIC ACID 1 MG TABLET PO SCH (10:20)
[2022-11-05] MEDS: PANTOPRAZOLE 40 MG/PACK PACK PO SCH (10:20)
[2022-11-05] MEDS: NEOMY SULF/BACITRAC ZN/POLY 15 GM TUBE TP SCH ×2 (10:22)
[2022-11-05] MEDS: Z GUARD REMEDY 4 OZ OINT TP SCH (10:23)
[2022-11-05] MEDS: PROSOURCE / PROSTAT (PYXIS) 30 ML UDC PO SCH ×3 (10:24→17:52)
[2022-11-05] MEDS: MEROPENEM 500 MG in IV NS 0.9% 50 ML IV SCH (10:44)
[2022-11-05] MEDS ORDERED: ALBUMIN 25% 25 GM in PREMIX 1 EA IV ONE (11:00)
[2022-11-05 13:04] LABS: BASOPHILS % (MANUAL) 0 % (0.0-2.0); EOSINOPHILS % (MANUAL) 5 % (0-4); LYMPHOCYTES % (MANUAL) 13 % (16-48); MONOCYTES % (MANUAL) 11 % (0-11.0); NEUTROPHILS % (MANUAL) 71 (42-76)
[2022-11-05] MEDS ORDERED: diphenhydrAMINE HCL 50 MG/ML VIAL IV ONE ×2 (14:30→18:16)
[2022-11-05] MEDS ORDERED: ACETAMINOPHEN 325 MG TABLET PO ONE (14:30)
[2022-11-05] MEDS: EPOETIN ALFA-EPBX 2,000 UNIT/ML VIAL SQ SCH (15:42)
[2022-11-05] MEDS: FLUCONAZOLE (100 MG) 100 MG TABLET PO SCH (21:27)
[2022-11-06] VITALS (11 sets, daily range): BP systolic 92–132; BP diastolic 57–81; TEMP 97.3–98.3; O2SAT 96–98
[2022-11-06] MEDS: LACTULOSE 10 G/15 ML UDC (PYXIS) PO SCH ×6 (00:05→22:31)
[2022-11-06] MEDS: BLOOD SUGAR DIAGNOSTIC 1 EACH STRIP IN SCH ×3 (06:07→18:47)
[2022-11-06 06:54] LABS: BASOPHILS % (AUTO) 0.9 % (0.0-2.0); EOSINOPHILS % (AUTO) 5.8 % (0.0-6.0); HEMATOCRIT 22 % (33-45); LYMPHOCYTES # (AUTO) 0.9 K/uL (0.8-4.8); LYMPHOCYTES % (AUTO) 15.9 % (20.0-44.0); MEAN CORPUSCULAR HGB CONC 32 g/dl (31.0-36.0); MEAN CORPUSCULAR VOLUME 94 fL (82-100); MONOCYTES # (AUTO) 0.7 K/uL (0.1-1.30); MONOCYTES % (AUTO) 13.4 % (2.0-12.0); NEUTROPHILS # (AUTO) 3.5 K/uL (1.8-8.9); RED BLOOD CELL COUNT(AUTO) 2.29 MIL/uL (4.0-5.2); WHITE BLOOD COUNT (AUTO) 5.5 K/uL (4.3-11.0)
[2022-11-06 07:08] LABS: CALCIUM, SERUM 9.9 mg/dL (8.5-10.1); CARBON DIOXIDE 18 mmol/L (21-32); CHLORIDE 111 mmol/L (98-107); CREATININE 5.7 mg/dL (0.6-1.3); GLUCOSE 107 mg/dL (74-106); MAGNESIUM 2.4 mg/dL (1.8-2.4); POTASSIUM 3.7 mmol/L (3.5-5.1); SODIUM SERUM 146 mmol/L (136-145); UREA NITROGEN, BLOOD 41 mg/dL (7-18)
[2022-11-06 07:22] LABS: HEMOGLOBIN 6.8 g/dL (11.5-14.8); PLATELET COUNT (AUTO) 29 K/uL (150-450)
[2022-11-06 07:23] LABS: D-DIMER 9.98 mg/L(FEU (0.17-0.50)
[2022-11-06] MEDS: NEOMY SULF/BACITRAC ZN/POLY 15 GM TUBE TP SCH ×3 (09:00→11:04)
[2022-11-06 09:44] LABS: EOSINOPHILS % (MANUAL) 4 % (0-4); LYMPHOCYTES % (MANUAL) 13 % (16-48); MONOCYTES % (MANUAL) 10 % (0-11.0); NEUTROPHILS % (MANUAL) 73 (42-76)
[2022-11-06] MEDS: FOLIC ACID 1 MG TABLET PO SCH (11:00)
[2022-11-06] MEDS: LACTOBACILLUS RHAMNOSUS GG 1 EACH CAP.SPRINK PO SCH ×2 (11:00→18:50)
[2022-11-06] MEDS: FERROUS SULFATE (325 MG) 325 MG/TAB TABLET PO SCH ×3 (11:00→18:51)
[2022-11-06] MEDS: PANTOPRAZOLE 40 MG/PACK PACK PO SCH (11:00)
[2022-11-06] MEDS: LINEZOLID 600 MG TABLET PO SCH ×3 (11:01→18:51)
[2022-11-06] MEDS: MEROPENEM 500 MG in IV NS 0.9% 50 ML IV SCH (11:01)
[2022-11-06] MEDS: ASCORBIC ACID 500 MG TABLET PO SCH (11:01)
[2022-11-06] MEDS: PROSOURCE / PROSTAT (PYXIS) 30 ML UDC PO SCH ×3 (11:03→18:52)
[2022-11-06] MEDS: Z GUARD REMEDY 4 OZ OINT TP SCH (11:04)
[2022-11-06] MEDS: INSULIN REGULAR, HUMAN 100 UNIT/ML 3 ML VIAL SQ PRN ×2 (12:53→18:55)
[2022-11-06] MEDS: MIDODRINE HCL (5MG) 5 MG TABLET PO SCH ×3 (15:31→18:51)
[2022-11-06] MEDS ORDERED: ACETAMINOPHEN 325 MG TABLET PO ONE (16:00)
[2022-11-06] MEDS ORDERED: diphenhydrAMINE HCL 50 MG/ML VIAL IV ONE (16:00)
[2022-11-06] MEDS ORDERED: IV NS 0.9% 500 ML BAG IV ONE (17:00)
[2022-11-06] MEDS: ALBUMIN 25% 25 GM in PREMIX 1 EA IV PRN (17:31)
[2022-11-06 17:53] LABS: OCCULT BLOOD STOOL POSITIVE (NEGATIVE)
[2022-11-06] MEDS: FLUCONAZOLE (100 MG) 100 MG TABLET PO SCH (22:31)
[2022-11-07] MEDS: BLOOD SUGAR DIAGNOSTIC 1 EACH STRIP IN SCH ×4 (00:09→18:37)
[2022-11-07] MEDS: LACTULOSE 10 G/15 ML UDC (PYXIS) PO SCH ×6 (00:49→21:00)
[2022-11-07 03:06] VITALS: BP 128/75; TEMP 97.4
[2022-11-07 03:35] VITALS: BP 135/69; TEMP 97.5
[2022-11-07 05:55] LABS: BASOPHILS # (AUTO) 0.1 K/uL (0.0-0.2); BASOPHILS % (AUTO) 0.9 % (0.0-2.0); EOSINOPHILS % (AUTO) 5.3 % (0.0-6.0); HEMATOCRIT 27 % (33-45); HEMOGLOBIN 8.8 g/dL (11.5-14.8); LYMPHOCYTES # (AUTO) 0.8 K/uL (0.8-4.8); LYMPHOCYTES % (AUTO) 10.4 % (20.0-44.0); MEAN CORPUSCULAR HGB CONC 33 g/dl (31.0-36.0); MEAN CORPUSCULAR VOLUME 94 fL (82-100); MONOCYTES # (AUTO) 0.5 K/uL (0.1-1.30); NEUTROPHILS # (AUTO) 5.9 K/uL (1.8-8.9); NEUTROPHILS % (AUTO) 77.4 % (43.0-81.0); RED BLOOD CELL COUNT(AUTO) 2.88 MIL/uL (4.0-5.2); WHITE BLOOD COUNT (AUTO) 7.7 K/uL (4.3-11.0)
[2022-11-07 05:59] LABS: PLATELET COUNT (AUTO) 43 K/uL (150-450)
[2022-11-07 06:13] LABS: D-DIMER 9.84 mg/L(FEU (0.17-0.50)
[2022-11-07 06:18] LABS: ALANINE AMINOTRANSFERASE 18 U/L (12-78); ALBUMIN 3.2 g/dL (3.4-5.0); ALKALINE PHOSPHATASE 83 U/L (46-116); ASPARTATE AMINOTRANSFERASE 8 U/L (15-37); BILIRUBIN,TOTAL 1.9 mg/dL (0.2-1.0); CALCIUM, SERUM 9.8 mg/dL (8.5-10.1); CARBON DIOXIDE 20 mmol/L (21-32); CHLORIDE 112 mmol/L (98-107); CREATININE 5.4 mg/dL (0.6-1.3); GLUCOSE 89 mg/dL (74-106); POTASSIUM 3.5 mmol/L (3.5-5.1); SODIUM SERUM 146 mmol/L (136-145); TOTAL PROTEIN, SERUM 5.5 g/dL (6.4-8.2); UREA NITROGEN, BLOOD 41 mg/dL (7-18)
[2022-11-07 06:26] LABS: BASOPHILS % (MANUAL) 0 % (0.0-2.0); EOSINOPHILS % (MANUAL) 4 % (0-4); LYMPHOCYTES % (MANUAL) 11 % (16-48); MONOCYTES % (MANUAL) 5 % (0-11.0); NEUTROPHILS % (MANUAL) 80 (42-76)
[2022-11-07 07:00] VITALS: BP 140/75; TEMP 97.7; O2SAT 98
[2022-11-07] MEDS: PANTOPRAZOLE 40 MG/PACK PACK PO SCH (08:54)
[2022-11-07] MEDS: LACTOBACILLUS RHAMNOSUS GG 1 EACH CAP.SPRINK PO SCH ×2 (08:55→17:45)
[2022-11-07] MEDS: FOLIC ACID 1 MG TABLET PO SCH (08:55)
[2022-11-07] MEDS: MIDODRINE HCL (5MG) 5 MG TABLET PO SCH ×3 (08:55→17:46)
[2022-11-07] MEDS: FERROUS SULFATE (325 MG) 325 MG/TAB TABLET PO SCH ×2 (08:55→17:46)
[2022-11-07] MEDS: LINEZOLID 600 MG TABLET PO SCH (08:55)
[2022-11-07] MEDS: ASCORBIC ACID 500 MG TABLET PO SCH (08:56)
[2022-11-07] MEDS: PROSOURCE / PROSTAT (PYXIS) 30 ML UDC PO SCH ×3 (08:59→17:46)
[2022-11-07] MEDS: Z GUARD REMEDY 4 OZ OINT TP SCH (09:01)
[2022-11-07] MEDS: NEOMY SULF/BACITRAC ZN/POLY 15 GM TUBE TP SCH (09:02)
[2022-11-07] MEDS: MEROPENEM 500 MG in IV NS 0.9% 50 ML IV SCH (10:47)
[2022-11-07 16:00] VITALS: BP 126/65; TEMP 97.6; O2SAT 98
[2022-11-07] MEDS: EPOETIN ALFA-EPBX 2,000 UNIT/ML VIAL SQ SCH (16:15)
[2022-11-07 20:00] VITALS: BP 115/60; TEMP 97.9; O2SAT 98
[2022-11-07] MEDS ORDERED: PHYTONADIONE INJ 10 MG/1 ML AMPUL SQ ONE (22:00)
[2022-11-08] MEDS: BLOOD SUGAR DIAGNOSTIC 1 EACH STRIP IN SCH ×3 (00:06→11:23)
[2022-11-08] MEDS: INSULIN REGULAR, HUMAN 100 UNIT/ML 3 ML VIAL SQ PRN ×2 (00:06→06:42)
[2022-11-08] MEDS: LACTULOSE 10 G/15 ML UDC (PYXIS) PO SCH ×4 (01:00→12:46)
[2022-11-08 06:21] LABS: BASOPHILS # (AUTO) 0.1 K/uL (0.0-0.2); BASOPHILS % (AUTO) 1.2 % (0.0-2.0); EOSINOPHILS % (AUTO) 4.9 % (0.0-6.0); HEMATOCRIT 28 % (33-45); LYMPHOCYTES # (AUTO) 1.2 K/uL (0.8-4.8); LYMPHOCYTES % (AUTO) 21.1 % (20.0-44.0); MEAN CORPUSCULAR HGB CONC 32 g/dl (31.0-36.0); MEAN CORPUSCULAR VOLUME 94 fL (82-100); MONOCYTES # (AUTO) 0.5 K/uL (0.1-1.30); NEUTROPHILS # (AUTO) 3.7 K/uL (1.8-8.9); NEUTROPHILS % (AUTO) 63.8 % (43.0-81.0); RED BLOOD CELL COUNT(AUTO) 2.98 MIL/uL (4.0-5.2); WHITE BLOOD COUNT (AUTO) 5.7 K/uL (4.3-11.0)
[2022-11-08 06:46] LABS: ALANINE AMINOTRANSFERASE 14 U/L (12-78); ALBUMIN 2.8 g/dL (3.4-5.0); ALKALINE PHOSPHATASE 95 U/L (46-116); ASPARTATE AMINOTRANSFERASE 16 U/L (15-37); BILIRUBIN,TOTAL 1.3 mg/dL (0.2-1.0); CALCIUM, SERUM 9.7 mg/dL (8.5-10.1); CARBON DIOXIDE 18 mmol/L (21-32); CHLORIDE 116 mmol/L (98-107); CREATININE 5.7 mg/dL (0.6-1.3); GLUCOSE 72 mg/dL (74-106); POTASSIUM 3.8 mmol/L (3.5-5.1); SODIUM SERUM 150 mmol/L (136-145); TOTAL PROTEIN, SERUM 5.3 g/dL (6.4-8.2); UREA NITROGEN, BLOOD 51 mg/dL (7-18)
[2022-11-08 06:51] LABS: PLATELET COUNT (AUTO) 43 K/uL (150-450)
[2022-11-08 08:00] VITALS: BP 107/62; TEMP 97.8; O2SAT 96
[2022-11-08] MEDS: ASCORBIC ACID 500 MG TABLET PO SCH (08:51)
[2022-11-08] MEDS: LACTOBACILLUS RHAMNOSUS GG 1 EACH CAP.SPRINK PO SCH (08:51)
[2022-11-08] MEDS: FERROUS SULFATE (325 MG) 325 MG/TAB TABLET PO SCH (08:51)
[2022-11-08] MEDS: PROSOURCE / PROSTAT (PYXIS) 30 ML UDC PO SCH ×2 (08:52→12:45)
[2022-11-08] MEDS: PANTOPRAZOLE 40 MG/PACK PACK PO SCH (08:52)
[2022-11-08] MEDS: FOLIC ACID 1 MG TABLET PO SCH (08:52)
[2022-11-08] MEDS: MIDODRINE HCL (5MG) 5 MG TABLET PO SCH ×2 (08:52→12:46)
[2022-11-08] MEDS: ERGOCALCIFEROL (VITAMIN D 2) 50,000 UNIT CAPSULE PO SCH (08:54)
[2022-11-08] MEDS: NEOMY SULF/BACITRAC ZN/POLY 15 GM TUBE TP SCH ×2 (09:13)
[2022-11-08] MEDS: Z GUARD REMEDY 4 OZ OINT TP SCH (09:14)
[2022-11-08 11:41] LABS: BASOPHILS % (MANUAL) 0 % (0.0-2.0); EOSINOPHILS % (MANUAL) 4 % (0-4); LYMPHOCYTES % (MANUAL) 18 % (16-48); MONOCYTES % (MANUAL) 10 % (0-11.0); NEUTROPHILS % (MANUAL) 68 (42-76)
[2022-11-08] MEDS: ALBUMIN 25% 12.5 GM in PREMIX 1 EA IV PRN ×2 (14:17→15:15)
[2022-11-08 16:00] VITALS: BP 100/57; TEMP 97.6; O2SAT 98
== END 2022-11-08 16:10 | DRG 441 ==
LOC: ER 12:47 → TELE 14:10 → MED 10-31 07:50
PROVIDERS: ADMIT Internal Medicine; ATTEND Internal Medicine
PROC: 5A1D70Z Performance of Urinary Filtration, Intermittent, Less than 6 Hours Per Day (ICD-10-PCS; principal; 2022-10-29)
PROC: 30233M1 Transfusion of Nonautologous Plasma Cryoprecipitate into Peripheral Vein, Percutaneous Approach (ICD-10-PCS; 2022-11-02)
PROC: 05H533Z Insertion of Infusion Device into Right Subclavian Vein, Percutaneous Approach (ICD-10-PCS; 2022-11-02)
PROC: B546ZZA Ultrasonography of Right Subclavian Vein, Guidance (ICD-10-PCS; 2022-11-02)
PROC: 30233K1 Transfusion of Nonautologous Frozen Plasma into Peripheral Vein, Percutaneous Approach (ICD-10-PCS; 2022-11-04)
PROC: 30233N1 Transfusion of Nonautologous Red Blood Cells into Peripheral Vein, Percutaneous Approach (ICD-10-PCS; 2022-11-06)
PROC: 0W9G3ZZ Drainage of Peritoneal Cavity, Percutaneous Approach (ICD-10-PCS; 2022-11-06)
PROC: 30233R1 Transfusion of Nonautologous Platelets into Peripheral Vein, Percutaneous Approach (ICD-10-PCS; 2022-11-07)
DX: K76.82 Hepatic encephalopathy (principal); D65 Disseminated intravascular coagulation [defibrination syndrome]; N18.6 End stage renal disease; E43 Unspecified severe protein-calorie malnutrition; G92.8 Other toxic encephalopathy; I12.0 Hypertensive chronic kidney disease with stage 5 chronic kidney disease or end stage renal disease; D84.9 Immunodeficiency, unspecified; D61.818 Other pancytopenia; E87.20 Acidosis, unspecified; R64 Cachexia; Z16.21 Resistance to vancomycin; N39.0 Urinary tract infection, site not specified; Z68.1 Body mass index [BMI] 19.9 or less, adult; D68.4 Acquired coagulation factor deficiency; I85.10 Secondary esophageal varices without bleeding; K70.31 Alcoholic cirrhosis of liver with ascites; Z66 Do not resuscitate; B95.2 Enterococcus as the cause of diseases classified elsewhere; E86.0 Dehydration; E87.6 Hypokalemia; E88.09 Other disorders of plasma-protein metabolism, not elsewhere classified; I51.7 Cardiomegaly; Z79.01 Long term (current) use of anticoagulants; Z90.710 Acquired absence of both cervix and uterus; Z91.199 Patient's noncompliance with other medical treatment and regimen due to unspecified reason; Z99.2 Dependence on renal dialysis; Z87.440 Personal history of urinary (tract) infections; Z87.442 Personal history of urinary calculi; Z86.16 Personal history of COVID-19; M12.812 Other specific arthropathies, not elsewhere classified, left shoulder; F99 Mental disorder, not otherwise specified; K29.70 Gastritis, unspecified, without bleeding; Z87.01 Personal history of pneumonia (recurrent); Z87.19 Personal history of other diseases of the digestive system; K72.10 Chronic hepatic failure without coma; B19.20 Unspecified viral hepatitis C without hepatic coma; D50.9 Iron deficiency anemia, unspecified; L89.156 Pressure-induced deep tissue damage of sacral region; J44.9 Chronic obstructive pulmonary disease, unspecified; K57.90 Diverticulosis of intestine, part unspecified, without perforation or abscess without bleeding; Z79.899 Other long term (current) drug therapy
CPT/HCPCS: 36415; 70450-TC; 71045-TC; 76942-TC; 80048-TC; 80053-TC; 80076-TC; 80202-TC; 81001; 82140-TC; 82272-TC; 82607-TC; 82728-TC; 82784; 82962-TC; 83540-TC; 83605-TC; 83735-TC; 84100-TC; 84155; 84165; 84443-TC; 84484-TC; 85025-TC; 85045-TC; 85396; 85610-TC; 85730-TC; 86140-TC; 86225; 86235; 86334; 86431-TC; 86706; 86803; 86850-TC; 87040-TC; 87081-TC; 87086-TC; 87340; 87806; 89051-TC; 90935-TC; 92526; A4216; A4217; A4223; A6253; C9113; G0378; J0696; J0885; J1200; J1450; J1815; J2020; J2185; J3370; J3430; J3475; J3490; J7030; J7040; J7050; J7060; P9012; P9016; P9017; P9034; P9047